=== PATIENT | male | born 1995 | race Caucasian/White ===

== ENCOUNTER 2024-01-04 11:03 | Emergency (ER) | payer SELFPAY ==
[~2024-01-04] VITALS: Ht 172.7 cm; Wt 70.0 kg
[2024-01-04 11:05] VITALS: O2SAT 100
[2024-01-04 12:02] LABS: BASOPHILS % 0.4 % (0.0-2.0); EOSINOPHILS % 0.1 % (0.0-5.0); HEMATOCRIT. 47.3 % (42.0-52.0); HEMOGLOBIN. 15.4 g/dL (14.0-18.0); LYMPHOCYTES % 16.1 % (20.0-50.0); MEAN CORPUSCULAR HEMOGLOBIN 29.8 pg (28.0-32.0); MEAN CORPUSCULAR HGB CONC 32.6 g/dL (31.0-37.0); MEAN CORPUSCULAR VOLUME 91.4 fL (80.0-94.0); MEAN PLATELET VOLUME 6.7 fl (7.4-10.4); MONOCYTES % 10.1 % (2.0-8.0); NEUTROPHILS % 73.3 % (40.0-76.0); PLATELET 403 x1000/uL (130-400); RED BLOOD CELL COUNT 5.17 mill/uL (4.7-6.1); RED CELL DISTRIBUTION WIDTH 13.7 % (11.6-14.6); WHITE BLOOD COUNT 11.4 x1000/uL (4.5-11.0)
[2024-01-04 12:11] LABS: CHLORIDE 103 mEq/L (98-107); POTASSIUM 4.1 mEq/L (3.5-5.1); SODIUM 137 mEq/L (136-145)
[2024-01-04 12:12] LABS: CARBON DIOXIDE 20 mEq/L (21-32)
[2024-01-04 12:17] LABS: CREATININE 1.3 mg/dL (0.6-1.3); GLUCOSE 102 mg/dL (70-105); UREA NITROGEN BLOOD 14 mg/dL (9-23)
[2024-01-04] MEDS: SODIUM CHLORIDE 0.9% 1,000 ML IV ONE (12:24)
[2024-01-04] MEDS: LORAZEPAM 1MG TABLET PO ONE (12:24)
[2024-01-04 12:25] LABS: PROTHROMBIN TIME 10.7 sec (9.6-11.0)
[2024-01-04 12:49] LABS: ETHANOL BLOOD < 10 mg/dL (<10); TROPONIN I HIGH SENSITIVITY < 4 ng/L (3.0-53)
[2024-01-04 15:56] LABS: TROPONIN I HIGH SENSITIVITY < 4 ng/L (3.0-53)
[2024-01-04 15:58] VITALS: BP 159/92; PULSE 100; RESP 18; TEMP 36.39180; O2SAT 100
== END 2024-01-04 16:03 | disposition home or self-care (01) ==
LOC: ER 11:03
DX: I44.1 Atrioventricular block, second degree (principal)
CPT/HCPCS: 80048; 80320; 85025; 85610; 84484; 36415; 71045; 93005; 96360; 99285; J7030; G0480